=== PATIENT | female | born 1995 | race African-American/Black ===

== ENCOUNTER 2020-10-06 06:00 | Inpatient (IN) | payer OTHER ==
[2020-10-06] MEDS ORDERED: OXYTOCIN 10 UNIT/ML 1 ML VIAL IM PRN (06:14)
[2020-10-06] MEDS ORDERED: CARBOPROST TROMETHAMINE 250 MCG/ML 1 ML AMP IM PRN (06:14)
[2020-10-06] MEDS ORDERED: TERBUTALINE 1 MG/ML VIAL SQ PRN (06:14)
[2020-10-06] MEDS ORDERED: LIDOCAINE 0.5% (PF) 5 MG/ML (50 ML SDV) SQ PRN (06:14)
[2020-10-06] MEDS ORDERED: METHYLERGONOVINE 0.2 MG/ML 1 ML AMP IM PRN (06:14)
[2020-10-06] MEDS ORDERED: OXYTOCIN 30 UNITS/500 ML NS 30 UNIT in SALINE 1 500ML.BAG IV SCH ×2 (06:15→10:15)
[2020-10-06] MEDS ORDERED: LACTATED RINGERS 1,000 ML IV SCH (06:15)
--- NOTE | 2020-10-06 06:39 | P.HPOB ---
History of Present Illness H&P Date: 10/06/20 Chief Complaint: IUGR, induction of labor 25 year old presents at 38 weeks 2 days for induction of labor. She has been followed with myself and [facility] for IUGR. Baby is measuring in the 7th %ile most recently. [facility] recommended delivery in the 38th week of . HEr c ervix is 3/80/-2 and she is galilea irregularly. Category 1 heart tones. Review of Systems All systems: negative Constitutional: Denies chills, Denies fever Eyes: denies blurred vision, denies pain Ears, nose, mouth and throat: Denies headache, Denies sore throat Cardiovascular: Denies chest pain, Denies shortness of breath Respiratory: Denies cough Gastrointestinal: Denies abdominal pain, Denies diarrhea, Denies nausea, Denies vomiting Genitourinary: Denies dysuria, Denies hematuria Musculoskeletal: Denies myalgias Integumentary: Denies pruritus, Denies rash Neurological: Denies numbness, Denies weakness Psychiatric: Denies anxiety, Denies depression Endocrine: Denies fatigue, Denies weight change Past Medical History Past Medical History: No Reported History Additional Past Medical History / Comment(s): OB history: first was a vaginal delivery. She has had care with me for this second since about 16 weeks. O+, abs neg, Rub Imm, Treponemal ab neg, Toxo neg, HEp B neg. Baby is IUGR but has had normal fluid and Doppler studies. BPPs were 8/8 and NSTs reactive. History of Any Multi-Drug Resistant Organisms: None Reported Past Surgical History: No Surgical Hx Reported Past Psychological History: Depression Smoking Status: Current every day smoker Past Alcohol Use History: None Reported Past Drug Use History: None Reported - Past Family History Mother Family Medical History: Diabetes Mellitus Medications and Allergies Home Medications Medication Instructions Recorded Confirmed Type No Known Home Medications 10/06/20 10/06/20 History Allergies Allergy/AdvReac Type Severity Reaction Status Date / Time No Known Allergies Allergy Verified 10/06/20 06:13 Exam Osteopathic Statement: *. No significant issues noted on an osteopathic structural exam other than those noted in the History and Physical/Consult. Vital Signs Temp Pulse Resp BP Pulse Ox 10/06/20 06:16 97.1 F L 89 16 121/73 98 Intake and Output 10/05/20 10/05/20 10/06/20 14:59 22:59 06:59 Other: Weight 104.326 kg HEart: RRR Lungs: CTAB Abdomen: soft, nontender Extremeties: neg [place] Assessment and Plan (1) IUGR (intrauterine growth restriction) Current Visit: Yes Status: Acute Code(s): [id number] - SNOMED Code(s): 22 316013 (2) Elective induction of labor planned Current Visit: Yes Status: Acute Code(s): [id number] - SNOMED Code(s): 086430283 Plan: 1. admit to [facility] 2. amniotomy and pitocin for induction of labor 3. anticipate normal vaginal delivery
[2020-10-06 07:11] LABS: Basophils % (A) 0 %; Eosinophils # (A) 0.1 k/uL (0-0.7); Eosinophils % (A) 1 %; HGB 12.3 gm/dL (11.4-16.0); Lymphocytes # (A) 2.9 k/uL (1.0-4.8); Lymphocytes % (A) 28 %; MCH 28.7 pg (25.0-35.0); MCHC 34.1 g/dL (31.0-37.0); MCV 84.1 fL (80.0-100.0); Mean Platelet Volume 9.2; Monocytes # (A) 0.8 k/uL (0-1.0); Monocytes % (A) 8 %; Neutrophils # (A) 6.3 k/uL (1.3-7.7); Platelet Count 275 k/uL (150-450); RBC 4.28 m/uL (3.80-5.40); WBC 10.3 k/uL (3.8-10.6)
[2020-10-06] MEDS ORDERED: diphenhydrAMINE 25 MG CAP PO PRN (10:08)
[2020-10-06] MEDS ORDERED: ZOLPIDEM 5 MG TAB PO PRN (10:08)
[2020-10-06] MEDS ORDERED: HYDROCORTISONE 2.5% RECTAL CREAM 30 GM TUBE RECTAL PRN (10:08)
[2020-10-06] MEDS ORDERED: BENZOCAINE/MENTHOL SPRAY 1 GM/SPRAY AEROSOL TOPICAL PRN (10:08)
[2020-10-06] MEDS ORDERED: diphenhydrAMINE 50 MG CAP PO PRN (10:08)
[2020-10-06] MEDS ORDERED: diphenhydrAMINE 50 MG/ML 1 ML VIAL IVP PRN ×2 (10:08)
[2020-10-06] MEDS ORDERED: SIMETHICONE 80 MG CHEWABLE PO PRN (10:08)
[2020-10-06] MEDS ORDERED: LANOLIN CREAM 5 GM TUBE TOPICAL PRN (10:08)
[2020-10-06] MEDS ORDERED: ACETAMINOPHEN TAB 325 MG TAB PO PRN (10:08)
[2020-10-06] MEDS: IBUPROFEN 600 MG TAB PO SCH ×2 (10:51→19:53)
[2020-10-06] MEDS: SENNOSIDES-DOCUSATE SODIUM 1 EACH TAB PO SCH (19:54)
[2020-10-06 20:16] VITALS: RESP 16
[2020-10-07] MEDS: IBUPROFEN 600 MG TAB PO SCH ×3 (01:06→13:51)
[2020-10-07 06:55] LABS: Basophils % (A) 0 %; Eosinophils # (A) 0.1 k/uL (0-0.7); Eosinophils % (A) 1 %; HCT 33.6 % (34.0-46.0); HGB 10.6 gm/dL (11.4-16.0); Hypochromasia Slight; Lymphocytes # (A) 3.5 k/uL (1.0-4.8); Lymphocytes % (A) 37 %; MCH 27.5 pg (25.0-35.0); MCHC 31.6 g/dL (31.0-37.0); MCV 86.8 fL (80.0-100.0); Mean Platelet Volume 8.9; Monocytes # (A) 0.5 k/uL (0-1.0); Monocytes % (A) 5 %; Neutrophils % (A) 53 %; Platelet Count 254 k/uL (150-450); RBC 3.88 m/uL (3.80-5.40); RDW 14.5 % (11.5-15.5); WBC 9.4 k/uL (3.8-10.6)
--- NOTE | 2020-10-07 07:45 | P.PROBDLV ---
Vaginal Delivery Note - . Vaginal Delivery Note: 25 year old presents at 38 weeks 2 days for induction of labor. She has been followed with myself and [facility] for IUGR. Baby is measuring in the 7th %ile most recently. [facility] recommended delivery in the 38th week of . HEr cervix is 3/80/-2 and she is galilea irregularly. Category 1 heart tones. Pitocin was started and amniotomy performed at 7:51 AM clear fluid noted. She dilated rather quickly and was completely dilated around 9:30 AM. She pushed, d elivered a viable male over intact perineum at 9:35 AM. Head delivered OA, anterior shoulder delivered gentle downward guidance followed by posterior shoulder and rest of body. Nose and mouth bulb suctioned, cord clamped and cut, infant placed on mother's abdomen. Apgars 9, 10, weight 5 pounds 9.4 ounces. Placenta delivered spontaneous, intact with three-vessel cord at 9:37 AM. Vagina, cervix, and perineum were inspected. Bilateral labial lacerations repaired with 3-0 Vicryl. Estimated blood loss 200 mL mother and baby in stable condition.
--- NOTE | 2020-10-07 07:46 | P.DS ---
Providers Date of admission: 10/06/20 06:05 Expected date of discharge: 10/07/20 Attending physician: eMrlyn Mendes Primary care physician: Bernabe Liang - Discharge Diagnosis(es) (1) IUGR (intrauterine growth restriction) Current Visit: Yes Status: Resolved (2) Elective induction of labor planned Current Visit: Yes Status: Resolved (3) Normal vaginal delivery Current Visit: Yes Status: Acute Hospital Course: Patient presented for induction of labor. She underwent a normal vaginal delivery. Her course was uncomplicated. She'll be discharged home day #1 in stable condition to follow-up with me in 6 weeks. Plan - Discharge Summary New Discharge Prescriptions: New Ibuprofen [Motrin] 600 mg PO Q6H #40 tab Discharge Medication List Ibuprofen [Motrin] 600 mg PO Q6H #40 tab 10/07/20 [Rx] Follow up Appointment(s)/Referral(s): Merlyn Mendes DO [Doctor of Osteopathic Medicine] - 6 Weeks Discharge Disposition: HOME SELF-CARE
[2020-10-07] MEDS: SENNOSIDES-DOCUSATE SODIUM 1 EACH TAB PO SCH (09:22)
[2020-10-07 12:27] VITALS: BP 120/68; PULSE 80; TEMP 98.3
== END 2020-10-07 14:35 | disposition home or self-care (01) | DRG 807 ==
LOC: 4FBP 06:05
PROVIDERS: ADMIT Obstetrics & Gynecology; ATTEND Obstetrics & Gynecology
PROC: 3E033VJ Introduction of Other Hormone into Peripheral Vein, Percutaneous Approach (ICD-10-PCS; principal; 2020-10-06)
PROC: 10E0XZZ Delivery of Products of Conception, External Approach (ICD-10-PCS; principal; 2020-10-06)
PROC: 10907ZC Drainage of Amniotic Fluid, Therapeutic from Products of Conception, Via Natural or Artificial Opening (ICD-10-PCS; principal; 2020-10-06)
PROC: 0HQ9XZZ Repair Perineum Skin, External Approach (ICD-10-PCS; principal; 2020-10-06)
DX: O36.5930 Maternal care for other known or suspected poor fetal growth, third trimester, not applicable or unspecified (principal); Z37.0 Single live birth; O70.0 First degree perineal laceration during delivery; O99.344 Other mental disorders complicating childbirth; O99.334 Smoking (tobacco) complicating childbirth; F32.9 Major depressive disorder, single episode, unspecified; F17.210 Nicotine dependence, cigarettes, uncomplicated; Z3A.38 38 weeks gestation of pregnancy; Z83.3 Family history of diabetes mellitus
CPT/HCPCS: 85025; 86850; 86900; 86901; 88307